=== PATIENT | male | born 1950 | race Caucasian/White ===

== ENCOUNTER 2017-12-09 19:30 | Emergency (ER) | payer OTHER ==
[2017-12-09 19:48] VITALS: BP 144/64
--- NOTE | 2017-12-09 20:05 | EDPHY ---
H & P Stated Complaint: LEFT FOOT PAIN X 2 HRS, SUDDENLY COULD NOT WALK ON IT Time Seen by Provider: 12/09/17 19:52 HPI/ROS: Chief Complaint: Left foot pain HPI: The patient presents the ED with complaints of acute left foot pain for the past 2 hr. The patient reports only pain with ambulation in between his 3rd and 4th metatarsal heads. The patient reportedly has been ski skiing recently. He denies any acute numbness or weakness. He denies any complaints hour history consistent with gout. REVIEW OF SYSTEMS: Neuro: [no headache, numbness, weakness] Musculoskeletal: [as above] Skin: [no abrasion or lacerations] Source: Patient - Personal History Current Tetanus/Diphtheria Vaccine: No - Medical/Surgical History Hx Asthma: No Hx Chronic Respiratory Disease: No Hx Diabetes: No Hx Cardiac Disease: No Hx Renal Disease: No Hx Cirrhosis: No Hx Alcoholism: No Hx HIV/AIDS: No Hx Splenectomy or Spleen Trauma: No Other PMH: HERNIA SURG X2, RIGHT TORN MENISCUS, LOW HR (35'S), KIDNEY STONES - Social History Smoking Status: Never smoked - Physical Exam Exam: General Appearance: Alert, no distress Skin: No cellulitis, no abscess Extremities: Tenderness to palpation the between the 3rd and 4th metatarsal heads of the left foot. Neurological: A&Ox3, normal motor function, normal sensory exam Constitutional: Initial Vital Signs Temperature (C) 36.6 C 12/09/17 19:42 Heart Rate 34 L 12/09/17 19:42 Respiratory Rate 18 12/09/17 19:42 Blood Pressure 144/64 H 12/09/17 19:42 O2 Sat (%) 93 12/09/17 19:42 O2 Delivery Mode Room Air Allergies/Adverse Reactions: No Known Allergies Allergy (Unverified 12/09/17 19:42) Home Medications: Medication Instructions Recorded Glucosamine 12/09/17 Medical Decision Making - Diagnostics Imaging Results: Left foot x-ray: Images reviewed by myself: Impression negative for acute fracture. ED Course/Re-evaluation: The patient presents to the ED for evaluation of left foot pain. He has no evidence of an obvious stress fracture noted on his plain film. Clinical examination is suspicious for a myofascial strain or possible Myers's neuroma. The patient will be advised to use ibuprofen as needed. He has been referred to Dr. Arteaga our foot ankle specialist. Differential Diagnosis: Differential diagnosis considered includes fracture, sprain, dislocation, Myers 's neuroma Departure - Departure Disposition: Home, Routine, Self-Care Clinical Impression: Left foot pain Condition: Good Instructions: Musculoskeletal Pain (ED) Additional Instructions: 1. Take Ibuprofen or Motrin 600 mg by mouth three times a day. 2. Please follow up with the Foot and Ankle specialist you have been referred to for any persistent pain or swelling. Your x-ray demonstrates no evidence of an obvious fracture today. You may be experiencing a condition called Myers's neuroma which is a irritation of the nerve in the foot. 3. I do recommend avoiding rigid boots until your symptoms improve. Referrals: Chai Arteaga MD [Medical Doctor] - As per Instructions
== END 2017-12-09 20:28 | disposition home or self-care (01) ==
DX: M79.672 Pain in left foot (principal); Z87.828 Personal history of other (healed) physical injury and trauma